=== PATIENT | female | born 2000 | race Caucasian/White ===

== ENCOUNTER → 2024-01-08 11:07 | Outpatient (REF) | payer BC, OTHER, MEDICAID, SELFPAY ==
[2024-01-08 15:46] LABS: % Basophils 0.4 % (0-2); % Eosinophils 0.9 % (0-6); % Immature Granulocytes 0.3 % (0-0.5); % Lymphocytes 22.5 % (20.5-51.1); % Monocytes 6.2 % (1.7-9.3); % Neutrophils 69.7 % (42.2-75.2); Absolute Eosinophils 0.1 10^3/uL (0-0.7); Absolute Lymphocytes 1.7 10^3/uL (1.2-3.4); Absolute Monocytes 0.5 10^3/uL (0.1-0.6); Absolute Neutrophils 5.2 10^3/uL (1.4-6.5); Hematocrit 39.4 % (37.0-47.0); Hemoglobin 12.9 g/dL (12.0-16.0); Mean Corp Hgb Conc. 32.7 g/dL (33.0-37.0); Mean Corpuscular Hgb 29.9 pg (27.0-31.0); Mean Corpuscular Volume 91.2 fL (81.0-99.0); Mean Platelet Volume 10.4 fL (7.4-10.4); Nucleated Red Blood Cells % 0 %; Platelet Count 282 10^3/uL (130-400); Red Blood Cell Count 4.32 10^6/uL (4.20-5.40); White Blood Cell Count 7.5 10^3/uL (4.8-10.8)
[2024-01-08 15:52] LABS: ALT (SGPT) < 10 U/L (0-35); AST (SGOT) 18 U/L (14-36); Albumin 4.2 g/dl (3.5-5.0); Alkaline Phosphatase 44 U/L (38-126); Blood Urea Nitrogen 14 mg/dl (7-17); Calcium 9.3 mg/dl (8.4-10.2); Carbon Dioxide 28 mmol/L (22-30); Chloride 103 mmol/L (98-107); Glucose 84 mg/dl (70-99); Iron 112 ug/dl (37-170); Potassium 4.3 mmol/L (3.5-5.1); Sodium 134 mmol/L (135-145); Total Bilirubin 0.6 mg/dl (0.2-1.3); Total Protein 6.9 g/dl (6.3-8.2); eGFR > 60.00
[2024-01-08 16:03] LABS: Percent Saturation 31 % (20-50); Total Iron Binding Capacity 353 ug/dl (265-497)
[2024-01-08 16:09] LABS: Vitamin D, 25-OH*** 39.3 ng/mL (30-80)
[2024-01-08 16:23] LABS: TSH Reflex To Free T4 1.25 uIU/ml (0.47-4.68)
[2024-01-08 16:27] LABS: Ferritin 18.5 ng/ml (6.24-137)
[2024-01-08 17:06] LABS: Folate 19.3 ng/ml (2.76-20); Vitamin B12 536 pg/ml (239-931)
[2024-01-10 15:25] LABS: Transferrin 270 mg/dL (200-360)
== END ==
LOC: HWLAB 11:07
PROVIDERS: ATTENDING PHYSICIAN Psychiatry & Neurology Psychiatry; FAMILY PHYSICIAN Internal Medicine
DX: F25.0 Schizoaffective disorder, bipolar type (principal); F42.9 Obsessive-compulsive disorder, unspecified; F50.00 Anorexia nervosa, unspecified
CPT/HCPCS: 36415; 80053; 82306; 82607; 82728; 82746; 83540; 83550; 84443; 84466; 85025

== ENCOUNTER 2024-01-08 13:37 | Emergency (ER) | payer BC, OTHER, MEDICAID, SELFPAY ==
[2024-01-08 13:38] VITALS: BP 110/62
[2024-01-08 14:04] VITALS: BMI 28.9
--- NOTE | 2024-01-08 14:40 | ED.GENMED ---
History of Present Illness
<Joe Hernandes PA-C - Last Filed: 01/09/24 19:55>
General
Chief Complaint: Medication Reaction
Source: patient
Exam Limitations: none
Time Seen by Provider: 01/08/24 14:08
Travel History
Have you had any contact with someone who has COVID-19?: No
Do you have any symptoms of coronavirus? Fever > 100 degrees, chills, cough, shortness of breath, sore throat, loss of taste or smell, muscle aches, or headache?: No
History of Present Illness
History of Present Illness:
23-year-old female presents complaining of blurry vision for 3 days with involuntary muscle contractions that have been increasing over several days as well. She recently switched psychiatrists and was started on new medication including
benztropine and Caplyta. She denies chest pain or shortness of breath. No fever. No urinary symptoms. No other complaints at this time
Phy Exam
<Joe Hernandes PA-C - Last Filed: 01/09/24 19:55>
Physical Exam
Physical Exam:
General: Well-appearing female no acute respiratory distress
HEENT: Normocephalic atraumatic mucosa dry neck is supple pupils equal round reactive to light but measure about 5 mm bilaterally and constrict to about 3 mm. Extract motion intact no nystagmus
Heart: Regular rate and rhythm
Lungs: Clear no wheeze or rales
Neurologic exam: Alert and oriented x 3. Occasional contractions of the muscle that are brief. This is mainly upper body but some to the lower body. Finger-nose intact [id number] intact. Alert and oriented x 3 extremities: No cyanosis
Course
<Joe Hernandes PA-C - Last Filed: 01/09/24 19:55>
Orders/Labs/Results
Orders:
Orders
01/08/24 14:21
CT Head W/o Iv Contrast Urgent
Comment:
Reason For Exam: blurry vision, twitches
01/08/24 14:43
Test Result ONCE
01/08/24 14:53
Complete Blood Count/With Diff Urgent
Comprehensive Metabolic Panel Urgent
HCG, Serum Qualitative Screen Urgent
Abnormal Lab Results
01/08/24
14:53
RBC 4.11 L 10^6/uL
(4.20-5.40)
Hct 36.3 L %
(37.0-47.0)
Sodium 134 L mmol/L
(135-145)
01/08/24 14:53
01/08/24 14:53
Vital Signs
Initial and Last Documented VS:
Initial Vital Signs
Temp Pulse Resp BP Pulse Ox
98.1 F 80 18 110/62 98
01/08/24 13:38 01/08/24 13:38 01/08/24 13:38 01/08/24 13:38 01/08/24 13:38
Last Documented Vital Signs
Temp Pulse Resp BP Pulse Ox
98.1 F 60 18 111/58 100
01/08/24 13:38 01/08/24 17:55 01/08/24 17:55 01/08/24 17:55 01/08/24 17:55
<Esequiel Marmolejo MD - Last Filed: 01/08/24 17:44>
Orders/Labs/Results
Orders:
Orders
01/08/24 14:21
CT Head W/o Iv Contrast Urgent
Comment:
Reason For Exam: blurry vision, twitches
01/08/24 14:43
Test Result ONCE
01/08/24 14:53
Complete Blood Count/With Diff Urgent
Comprehensive Metabolic Panel Urgent
HCG, Serum Qualitative Screen Urgent
Abnormal Lab Results
01/08/24
14:53
RBC 4.11 L 10^6/uL
(4.20-5.40)
Hct 36.3 L %
(37.0-47.0)
Sodium 134 L mmol/L
(135-145)
01/08/24 14:53
01/08/24 14:53
Vital Signs
Initial and Last Documented VS:
Initial Vital Signs
Temp Pulse Resp BP Pulse Ox
98.1 F 80 18 110/62 98
01/08/24 13:38 01/08/24 13:38 01/08/24 13:38 01/08/24 13:38 01/08/24 13:38
Last Documented Vital Signs
Temp Pulse Resp BP Pulse Ox
98.1 F 60 18 111/58 100
01/08/24 13:38 01/08/24 17:55 01/08/24 17:55 01/08/24 17:55 01/08/24 17:55
<Joe Hernandes PA-C - Last Filed: 01/09/24 19:55>
MDM/Problems Addressed
Differential Diagnosis Includes:
Blurry vision with involuntary muscle contractions after recent initiation of benztropine and Caplyta. Question possible medication adverse. Sent in by psychiatry for imaging and blood work. CT head pending. Will touch base with psychiatry for
recommendation
<Joe Hernandes PA-C - Last Filed: 01/09/24 19:55>
*Critical Care Note
Total Time (30-74mins, 75-104mins- exclusive of procedures): Not Applicable
<Joe Hernandes PA-C - Last Filed: 01/09/24 19:55>
Update Note
Update Note:
Patient reevaluated. Stable. Discussed with psychiatry who is concerned for upper motor neuron issue given the hyper reflexes. There is no unilateral deficit on my exam bilateral patellar reflexes are 3+ bilateral brachioradialis are 2+. No
clonus is noted discussed with neurology who is in to see the patient
Symptoms likely related to medication. Stable for discharge
ED Attending Note
<Joe Hernandes PA-C - Last Filed: 01/09/24 19:55>
-
Portions of this chart may have been created with voice recognition software.� Occasional wrong word or��sound alike� substitutions may have occurred due to the inherent limitations of voice recognition software.
<Esequiel Marmolejo MD - Last Filed: 01/08/24 17:44>
ED Attending Note
Patient seen and examined by attending physician: Yes
I performed the substantive portion of visit, reviewed & personally made and approve the management plan that is documented in note by myself or CHARLES.: Yes
ED Attending Note:
Patient describing ongoing movement issues. Medication adjustments with new antipsychotic and benztropine. Also describing blurry vision the last 2 to 3 days. No unusual headache or other neurologic symptoms.
On exam patient is fully awake alert and oriented no distress. Normal finger-nose. Speech normal. Very dilated pupils bilaterally with minimal reaction. This sharp. Speech normal. Nonfocal. Mildly hyperreflexic patellar. Otherwise nonfocal.
Patient was sent by psychiatry. Clinically I suspect this is medication related. Labs are normal head CT negative. Psychiatry was concerned of a underlying neurologic issue and therefore we asked for neurology's opinion
Seen and cleared by neurology. Hold Cogentin follow-up. Psychiatry aware
Discharge Plan
Departure
Patient Disposition: Home (Routine Discharge)
Date of Disposition: 01/08/24
Time of Disposition: 17:42
Patient with high blood pressure during this ER visit?: No
Discharge Problem:
Blurry vision, Suspect secondary to Cogentin, Movement disorder/tardive dyskinesia
Referrals:
Kathryn Borjas, DO [Family Provider] - Follow up in 2-3 days
Activity Restrictions/Additional Instructions:
Stop the Cogentin
Follow-up closely with your psychiatrist and primary care physician
If the blurry vision does not improve and resolve over the next 2 to 4 days or if symptoms progress or if you develop any new or unusual symptoms please return to the ER immediately. This would include unusual headache focal weakness speech etc.
Interventions
Interventions:
*Risk Screen - Suicide Last Done: 01/08/24 14:04
*General Assessment Last Done: 01/08/24 14:04
*Neglect/Abuse Screening Last Done: 01/08/24 14:04
ED- Fall Risk Assessment Last Done: 01/08/24 14:09
*ED COVID-19 Vaccine History Last Done: 01/08/24 14:04
*Nursing Disposition Last Done: 01/08/24 17:55
ED-Skin Assessment Last Done: 01/08/24 14:04
ED- Pulmonary Assessment Last Done: 01/08/24 14:04
ED-EENT Assessment Last Done: 01/08/24 14:04
Discharge Date and Time
Discharge Date/Time: 01/08/24 17:55
Print Language: NAMIBIAN
[2024-01-08 15:01] LABS: % Basophils 0.4 % (0-2); % Eosinophils 0.4 % (0-6); % Immature Granulocytes 0.3 % (0-0.5); % Lymphocytes 25.9 % (20.5-51.1); % Monocytes 6.5 % (1.7-9.3); % Neutrophils 66.5 % (42.2-75.2); Absolute Lymphocytes 1.8 10^3/uL (1.2-3.4); Absolute Monocytes 0.5 10^3/uL (0.1-0.6); Absolute Neutrophils 4.7 10^3/uL (1.4-6.5); Hematocrit 36.3 % (37.0-47.0); Hemoglobin 12.3 g/dL (12.0-16.0); Mean Corp Hgb Conc. 33.9 g/dL (33.0-37.0); Mean Corpuscular Hgb 29.9 pg (27.0-31.0); Mean Corpuscular Volume 88.3 fL (81.0-99.0); Nucleated Red Blood Cells % 0 %; Platelet Count 271 10^3/uL (130-400); Red Blood Cell Count 4.11 10^6/uL (4.20-5.40); Red Cell Dist. Width 12.1 % (11.5-14.5)
[2024-01-08 15:12] LABS: HCG, Serum Qualitative Screen Negative
[2024-01-08 15:15] LABS: ALT (SGPT) < 10 U/L (0-35); AST (SGOT) 17 U/L (14-36); Albumin 4.1 g/dl (3.5-5.0); Alkaline Phosphatase 44 U/L (38-126); Blood Urea Nitrogen 16 mg/dl (7-17); Calcium 9.3 mg/dl (8.4-10.2); Carbon Dioxide 26 mmol/L (22-30); Chloride 103 mmol/L (98-107); Estimated Creatinine Clearance > 125 ml/min; Glucose 80 mg/dl (70-99); Potassium 4.2 mmol/L (3.5-5.1); Sodium 134 mmol/L (135-145); Total Bilirubin 0.6 mg/dl (0.2-1.3); Total Protein 6.6 g/dl (6.3-8.2); eGFR > 60.00
--- NOTE | 2024-01-08 15:55 | CON.NEURO4 ---
Consultation - Neurology 4
-
CONSULTING PHYSICIAN: Delisa French
REFERRING PHYSICIAN: ER
DICTATED BY: Delisa French
DATE/TIME OF REQUEST: 01/08/24
DATE/TIME OF CONSULTATION: 01/08/24
Reason for Consultation: Blurred vision, tremors
History of Present Illness:
Patient is a 23-year-old woman with past medical history of affective disorder presents to the hospital because of blurred vision for the past 3 days and has had worsening brief abnormal movements for approximately the past 7 to 8 days. Has been
experiencing some abnormal movements and tremor for at least a couple of months.
Patient had previously been on a regimen for psychiatric medications of Luvox and Abilify the Abilify had not made her sick, so she was switched to combination of Latuda and Luvox. Then got started on propranolol and naltrexone she had switched
doctors so eventually got started on Prozac and Zyprexa and stop the Latuda and Luvox. She was tried on Rexulti which resulted in tremors. Geodon seem to be well-tolerated but she had a switch in psychiatrist.
Current medication regimen includes naltrexone, Prozac, propranolol which is planned and being stopped and Coplyta. Coplyta started about 12/31. Benztroptine started about 12/28. About 2 days after starting Benztroptine started to have more
abnormal movements. She had never had blurred vision before starting the Benztropine.
Patient and her mother had not seen any mental status changes. No vision problems before this.
Past Medical History: Affective disorder possibly bipolar and schizoaffective
Surgical History: None
Family History: Non-contributory
Social History: Lives at home with family, no tobacco alcohol or drug use
Review of Symptoms:
Patient denies any fever, headache, chest pain, shortness of breath, GI or symptoms.
Physical Exam:
Well-appearing young woman in no overt distress no signs of head or neck trauma oropharynx is clear eyes are clear with no ptosis no neck masses full range of motion of the neck heart rate regular breathing unlabored abdomen soft nontender no lower
extremity edema
Neurologic Examination:
The patient is awake, alert and oriented x 3. She is able to follow commands and answer questions appropriately. There is no aphasia or dysarthria. On cranial nerve assessment, pupils are 3 dilated 5 mm equal with reaction to light. Near vision is
poor. Can detect a red credit card and track it. Visual epstein are full. Extraocular movements are intact. Facial sensations are intact and bilaterally symmetrical, there is no facial asymmetry. Hearing is intact bilaterally to normal
conversation volume. Tongue palate and uvula are midline. Sternocleidomastoid strengths are full bilaterally. Motor strengths are 5/5 bilateral upper and lower extremities on medical research [place] scale. Occasional brief jerk movements of lower
extremities. Deep tendon reflexes are 3+ bilateral upper and lower extremities and Babinski is absent bilaterally. No clonus. Petty' negative. Sensations of pain, touch, temperature and vibration are intact and bilaterally symmetrical. There was
no extinction noted on double simultaneous stimulation. Coordination is intact by finger to nose bilaterally.
Neuro Imaging: CT head unremarkable
Impressions
1. Very likely the anticholinergic side effects of recent benztropine is producing mydriasis and blurred vision from this.
2. I suspect that her brief involuntary movements are either myoclonus secondary to medications (SSRI can do this) or tardive dyskinesia/Extrapyramidal effects from exposure to a number of prior antipsychotics. Difficult to tell which medication
this would be due to. It seems that the movements worsened before starting Coplyta so less likely attributable to that medication. Previous exposure to a number of antipsychotics and young age place her at risk for tardive dyskinesia.
3. No evidence of Parkinsonism or rigidity
4. Not showing signs of serotonin syndrome
Recommendations:
1. Remain off benztropine
2. Would wait around 7 to 10 days and if still having abnormal movements would consider starting amantadine for extrapyramidal side effects
3. Continue the Coplyta
4. No issues with plans to stop Propranolol
5. Continue Fluoxetine and Naltrexone
6. Continue to follow with psychiatrist
Discussed patient care with: ED, patient and her family
[2024-01-08 16:12] VITALS: BP 102/62
--- NOTE | 2024-01-08 17:54 | EDRN ---
Reviewed discharge instructions with patient. Verbalized understanding. Ambulated with steady gait to the lobby.
[2024-01-08 17:55] VITALS: BP 111/58
== END 2024-01-08 17:55 | disposition home or self-care (01) ==
LOC: EMR 13:37
PROVIDERS: Physician Assistant; EMERGENCY PHYSICIAN Emergency Medicine; FAMILY PHYSICIAN Internal Medicine; OTHER PHYSICIAN Student in an Organized Health Care Education/Training Program
DX: H53.8 Other visual disturbances (principal); G24.01 Drug induced subacute dyskinesia; M62.40 Contracture of muscle, unspecified site; G25.9 Extrapyramidal and movement disorder, unspecified; F39 Unspecified mood [affective] disorder; Z88.1 Allergy status to other antibiotic agents; Z88.0 Allergy status to penicillin; Z91.048 Other nonmedicinal substance allergy status
CPT/HCPCS: 99284; 36415; 70450; 80053; 82306; 82607; 82728; 82746; 83540; 83550; 84443; 84466; 84703; 85025

== ENCOUNTER 2024-02-15 19:35 | Emergency (ER) | payer BC, OTHER, SELFPAY ==
[2024-02-15 19:35] VITALS: BMI 27.9
[2024-02-15 19:57] VITALS: BP 104/68
[2024-02-16 01:28] VITALS: BP 114/58
--- NOTE | 2024-02-16 06:24 | ED.GENMED ---
History of Present Illness
General
Chief Complaint: Eye Problems
Source: patient and family (Mother)
Exam Limitations: none
Time Seen by Provider: 02/16/24 04:58
Nursing documentation reviewed up to this point in time: agreed with
Travel History
Have you had any contact with someone who has COVID-19?: No
Do you have any symptoms of coronavirus? Fever > 100 degrees, chills, cough, shortness of breath, sore throat, loss of taste or smell, muscle aches, or headache?: No
History of Present Illness
History of Present Illness:
23-year-old female with a past medical history of schizoaffective disorder who presents to the emergency room with her mother for evaluation of visual issues. Patient reports that she has had blurry vision for the past 1 to 2 months�was actually
initially seen in this emergency room in late December for the symptoms and was seen by neurology and her symptoms were thought to be related to medication. Her medications were adjusted but symptoms never resolved. She describes sensation 'like a
blob of Vaseline over my eyes. She says that she feels like everything is blurry. She denies any vision loss. She denies any eye pain. She has apparently had occasional headaches no headache presently. Denies any other complaints. She does
note that initially after onset of symptoms she was having some involuntary spastic movements of the arms which seem to actually resolved. Apparently the symptoms were discussed with patient's primary psychiatrist (Dr. Oliveros) who consulted with
neurology and ultimately recommended patient come to the emergency room for MRI.
Review of Systems
Review of Systems
All Other Systems: ROS reviewed and negative except as documented in HPI and ROS
Constitutional: Denies fever
EENT: Reports other (Blurry vision); Denies sore throat or runny nose
Respiratory: Denies cough or trouble breathing
Cardiac: Denies chest pain
ABD/GI: Denies abdominal pain, nausea or vomiting
: Denies flank pain
Musculoskeletal: Denies neck pain or back pain
Neurological: Reports headache; Denies dizzy, weakness or numbness
Phy Exam
Physical Exam
Physical Exam:
General: Awake, alert, oriented x3; no acute distress
Head: Normocephalic, atraumatic
Eyes: Conjunctiva normal, EOMI, pupils 5 mm and reactive to light bilaterally
Throat: Airway intact, handling secretions
Neck: Trachea midline, supple without meningismus
Lungs: Clear to auscultation bilaterally, no wheezing, rales, rhonchi
Heart: Regular rate and rhythm, no murmurs, gallops, or rubs
Abd: Soft, non distended, nontender
Neuro: Cranial nerves grossly intact, speech fluid, no motor or sensory deficits
Skin: no rash
Extremities: No edema in extremities, equal pulses in all extremities
Scores
Heart Failure Risk
Heart Failure Risk Score: Not Applicable
Heart Score for Chest Pain Patients
STEMI patient?: Not applicable
Withdrawal Assessment of Alcohol
Withdrawal Assessment Completed?: Not applicable
Course
Orders/Labs/Results
Orders:
Orders
02/16/24 05:34
Visual Acuity- Treatment ONCE
02/16/24 06:12
MR Brain W/o & With Contrast Urgent
Comment:
Reason For Exam: blurry vision
Recent pill cam endoscopy?: No
MR Orbit/face/neck W/o & With Urgent
Comment:
Reason For Exam: blurry vision
Recent pill cam endoscopy?: No
02/16/24 06:13
NEUROLOGY CONSULT Urgent
Consulting Provider: Pj French
Was physician already notified: Yes
Test Result ONCE
02/16/24 06:35
Complete Blood Count/With Diff Urgent
Comprehensive Metabolic Panel Urgent
HCG, Serum Qualitative Screen Urgent
02/16/24 07:39
Lorazepam [Ativan] 1 mg PO NOW STA
Abnormal Lab Results
02/16/24
06:35
RBC 3.95 L 10^6/uL
(4.20-5.40)
Hgb 11.7 L g/dL
(12.0-16.0)
Hct 34.4 L %
(37.0-47.0)
Total Protein 6.1 L g/dl
(6.3-8.2)
02/16/24 06:35
02/16/24 06:35
Vital Signs
Initial and Last Documented VS:
Initial Vital Signs
Temp Pulse Resp BP Pulse Ox
36.8 C 83 16 104/68 99
02/15/24 19:57 02/15/24 19:57 02/15/24 19:57 02/15/24 19:57 02/15/24 19:57
Last Documented Vital Signs
Temp Pulse Resp BP Pulse Ox
36.3 C 60 17 114/58 100
02/16/24 01:28 02/16/24 01:28 02/16/24 01:28 02/16/24 01:28 02/16/24 01:28
MDM/Problems Addressed
Differential Diagnosis Includes:
MS, medication side effect, primary ophthalmologic issue
MDM/Problems Addressed:
23-year-old female presents for evaluation of blurry vision has been ongoing for the past 2 months. Also having occasional headaches. Initially thought to be related to medication (Cogentin) but this medication has been discontinued and symptoms
have persisted. Primary psychiatrist ultimately recommended patient come in for MRI. Vital signs normal. Exam as above. Discussed case with neurology who confirmed plan as above�recommend for MRI brain with and without, MRI orbit with and
without. Will place IV send basic labs and test as well.
Discussed with radiologist will obtain MRI here in the emergency room and discussed with neurology they will evaluate and review MR. At this point I do not see any indication for admission�primary concern was multiple sclerosis which even in the
event that MRI is positive should not require admission. Will observe here pending imaging and neurology consultation.
*Pulse Oximetry
Patient hypoxic: no
*Critical Care Note
Total Time (30-74mins, 75-104mins- exclusive of procedures): Not Applicable
Data Reviewed
Review of Other/Old Records Reveals: Labs, Records, Radiology Studies and Progress Notes
Source: patient and family (Mother)
Patient Management
Discussion with other providers: Thread Laster (Discussed with psychiatrist, discussed with neurology) and Radiologist (Discussed with radiologist)
ED Attending Note
-
Portions of this chart may have been created with voice recognition software.� Occasional wrong word or��sound alike� substitutions may have occurred due to the inherent limitations of voice recognition software.
Discharge Plan
Departure
Discharge Problem:
Visual disturbance
Prescriptions:
No Action
ibuprofen [Advil] 200 mg Tablet
200 mg PO Q6HPRN PRN (Reason: mild pain)
fluoxetine 20 mg Capsule
60 mg PO DAILY
Caplyta 10.5 mg Capsule
10.5 mg PO HS
Referrals:
Kathryn Borjas DO [Family Provider] -
Activity Restrictions/Additional Instructions:
Thank you for visiting the Emergency Department at [facility].
1. Please schedule a follow up appointment as directed. Call first thing tomorrow morning to make an appointment.
2. If indicated, please take your medications as instructed and indicated on discharge paperwork.
3. If any of your symptoms do not improve, or persist, or become more severe within 6-12 hours, please return to the emergency department for further care.
4. Please return to the emergency department if you develop a headache, neck pain/stiffness, fever greater than 100.4F, chest pain, shortness of breath, persistent nausea, vomiting, slurred speech, difficulty walking, numbness/tingling, weakness,
signs of infection or any other symptoms that are worrisome to you.
Please call [phone] if you have any questions.
Interventions
Interventions:
*Risk Screen - Suicide Last Done: 02/15/24 19:57
*General Assessment Last Done: 02/15/24 19:57
*ED COVID-19 Vaccine History Last Done: 02/15/24 19:57
Discharge Date and Time
Print Language: SYRIAC
[2024-02-16 06:42] LABS: % Basophils 0.5 % (0-2); % Eosinophils 0.9 % (0-6); % Immature Granulocytes 0.2 % (0-0.5); % Lymphocytes 34.7 % (20.5-51.1); % Monocytes 8.1 % (1.7-9.3); % Neutrophils 55.6 % (42.2-75.2); Absolute Eosinophils 0.1 10^3/uL (0-0.7); Absolute Lymphocytes 2.3 10^3/uL (1.2-3.4); Absolute Monocytes 0.5 10^3/uL (0.1-0.6); Absolute Neutrophils 3.7 10^3/uL (1.4-6.5); Hematocrit 34.4 % (37.0-47.0); Hemoglobin 11.7 g/dL (12.0-16.0); Mean Corpuscular Hgb 29.6 pg (27.0-31.0); Mean Corpuscular Volume 87.1 fL (81.0-99.0); Mean Platelet Volume 9.8 fL (7.4-10.4); Nucleated Red Blood Cells % 0 %; Platelet Count 231 10^3/uL (130-400); Red Blood Cell Count 3.95 10^6/uL (4.20-5.40); Red Cell Dist. Width 11.9 % (11.5-14.5); White Blood Cell Count 6.6 10^3/uL (4.8-10.8)
[2024-02-16 06:52] LABS: HCG, Serum Qualitative Screen Negative
[2024-02-16 07:04] LABS: ALT (SGPT) < 10 U/L (0-35); AST (SGOT) 15 U/L (14-36); Albumin 3.8 g/dl (3.5-5.0); Alkaline Phosphatase 38 U/L (38-126); Blood Urea Nitrogen 12 mg/dl (7-17); Calcium 8.9 mg/dl (8.4-10.2); Carbon Dioxide 27 mmol/L (22-30); Chloride 106 mmol/L (98-107); Glucose 89 mg/dl (70-99); Potassium 3.5 mmol/L (3.5-5.1); Sodium 138 mmol/L (135-145); Total Bilirubin 0.6 mg/dl (0.2-1.3); Total Protein 6.1 g/dl (6.3-8.2); eGFR > 60.00
--- NOTE | 2024-02-16 08:51 | CON.NEURO4 ---
Addendum entered and electronically signed by Marvel Christensen MD 02/16/24 11:09:
Studies reviewed.
I have personally examined the patient. I reviewed and agree with the [facility] OPERATIONS INTELLIGENCE OFFICER's Note.
My addenda:
Awake, alert, interactive. No acute distress.
Speech intact.
Follows 2-step requests w/o difficulty. No tremor.
Extra-ocular movements grossly intact.
Facial movements full and symmetric. Hearing intact to normal conversational volume.
Normal UE movements bilaterally.
Neck: full ROM.
Chest: no dyspnea
Heart: no JVD
Ext: (-) Clubbing, (-) Cyanosis, (-) Edema
IMPRESSIONS/RECOMMENDATIONS:
Abrupt onset of worsening vision with self-reported central obscurations and daily persistent headaches
Differential diagnosis includes intracranial abnormality such as optic neuritis. More likely that the patient is experiencing migraine with and without aura
Patient previously utilized propranolol for treatment. Would advance propranolol dosing from 10 mg daily to dosing of 10 mg twice a day's of reducing likelihood of headache and therefore visual changes
Provide rizatriptan 10 mg melt tab now and as needed to remediate the patient's head discomfort
We will follow MRI of brain results
Would again attempt to alter patient's antidepressant medications in hopes of reducing symptomatology which may be related to same
Check blood work potential metabolic abnormalities producing symptomatology
Patient will require iron supplementation as outpatient due to low ferritin levels
D/W patient / family
All questions answered.
Will continue to follow as outpatient.
Original Note:
Consultation - Neurology 4
-
CONSULTING PHYSICIAN: Marvel Christensen MD
REFERRING PHYSICIAN: BHARTI/Dr. Gaston
DICTATED BY: ARNOL King
DATE/TIME OF REQUEST: 02/16/24
DATE/TIME OF CONSULTATION: 02/16/24
Reason for Consultation: Vision change
History of Present Illness:
This is a 23-year-old right-handed female who has presented to the hospital by referral of her psychiatrist Dr. Oliveros for report of ongoing visual disturbance. Patient was previously evaluated by out inpatient neurology service in December 2023 for
report of visual disturbance and abnormal movements.
From previous evaluation by Dr. French on 01/08/24:
'Patient is a 23-year-old woman with past medical history of affective disorder presents to the hospital because of blurred vision for the past 3 days and has had worsening brief abnormal movements for approximately the past 7 to 8 days. Has been
experiencing some abnormal movements and tremor for at least a couple of months.
Patient had previously been on a regimen for psychiatric medications of Luvox and Abilify the Abilify had not made her sick, so she was switched to combination of Latuda and Luvox. Then got started on propranolol and naltrexone she had switched
doctors so eventually got started on Prozac and Zyprexa and stop the Latuda and Luvox. She was tried on Rexulti which resulted in tremors. Geodon seem to be well-tolerated but she had a switch in psychiatrist.
Current medication regimen includes naltrexone, Prozac, propranolol which is planned and being stopped and Caplyta. Caplyta started about 12/31. Benztropine started about 12/28. About 2 days after starting Benztropine started to have more abnormal
movements. She had never had blurred vision before starting the Benztropine.
Patient and her mother had not seen any mental status changes. No vision problems before this.'
Patient weaned off of the new medication benztropine since that visit and her abnormal movements improved significantly. She continued on her new medication Caplyta. Patient reports that for the past two months since starting Caplyta she has had a
daily headache. Her headache is bitemporal and in the center of her forehead and also includes a throbbing sensation behind her eyes, left>right. Her headache comes and goes throughout the day and is typically an 8-9/10 but currently is a 7/10. She
reports photophobia but denies phonophobia, nausea, and vomiting. Prior to two months ago she rarely experienced a headache. She was on propranolol several months ago, she is unsure what this was for but was told it wasn't doing anything so it was
stopped, she tolerated the medication without any side effects.
She also endorses ongoing visual disturbance. She describes this as it seeming like there is a blob of Vaseline in the center of her bilateral vision obstructing her view. This is constant and never improves of worsens. She has not been evaluated
by an clinical educator. She was last evaluated by her survival equipment repairer in April 2023 and had an unremarkable exam at that time. She has glasses for mild vision impairment/astigmatism. Additionally, she notes 2 months of feeling like her legs fluctuate
between being stiff and 'giving out' on her. About 3x per week her legs give out and she falls to the ground on her knees. She reports an overall sensation of weakness prior to falling. She hasn't hit her head/neck with any of the falls. She denies
any speech/swallow difficulty, numbness, focal weakness, chest pain, palpitations, and shortness of breath.
Past Medical History: Schizoaffective disorder.
Surgical History: Denies.
Family History: Mother- migraines. Paternal uncle- brain tumor.
Social History: Denies alcohol, tobacco, and illicit drug use.
Allergies: Clindamycin, penicillins, environmental.
Home Medications: See below.
Review of Symptoms:
Patient denies any fever, chest pain, shortness of breath, GI or symptoms.
�Per the HPI.�All systems are reviewed negative except above.
Physical Exam:
The patient is afebrile, abdomen is nondistended, breathing is unlabored, skin is warm and dry, no edema.
Neurologic Examination:
The patient is awake, alert and oriented x 3. She is able to follow commands and answer questions appropriately. There is no aphasia or dysarthria. On cranial nerve assessment, pupils are 5 mm bilateral, round and reactive to light and
accommodation. Tunnel vision bilaterally. Extraocular movements are intact. Facial sensations are intact and bilaterally symmetrical, there is no facial asymmetry. Hearing is intact bilaterally to normal conversation volume. Tongue palate and uvula
are midline. Sternocleidomastoid strengths are full bilaterally. Motor strengths are 5/5 bilateral upper and lower extremities on medical research Nichols scale. There is no drift or involuntary movement noted. Deep tendon reflexes are 2+ bilateral
upper and lower extremities and Babinski is absent bilaterally. Sensations of touch, temperature and vibration are intact and bilaterally symmetrical. There was no extinction noted on double simultaneous stimulation. Coordination is intact by finger
to nose bilaterally.
Lab Results: See below.
Neuro Imaging:
1. CT Head 01/08/24: No acute intracranial abnormality noted.
2. MRI Brain 02/16/24: No acute intracranial abnormality.
3. MRI Orbits 02/16/24: Normal MRI appearance of the bilateral orbits
Differentials for the patient's presentation include:
1. Intractable migraine with aura in patient with no previous history of headache.
2. Subacute vision change and leg stiffness/weakness possibly medication-related in the setting of new med Caplyta.
3. MRI brain and orbits negative for structural brain abnormality that could produce patient's symptoms.
4. Need evaluation by ophthalmology to rule-out and eye issue.
Patient has the following risk factors for their symptoms: New medication Caplyta
Recommendations:
-Provide rizatriptan 10mg PO x1 now for migraine relief.
-Initiate propranolol 10mg BID for headache prevention. Can titrate this up if patient is tolerating starting dose, heart rate is currently in the 60's.
-Provide thiamine 100mg PO x3 days.
-Needs outpatient evaluation by ophthalmology as soon as possible, if this is normal would consider discontinuing Caplyta and trying an alternative medication.
Discussed patient care with: Dr. Christensen, the patient, patient's mother
Vital Signs and Labs
-
Vital Signs and Labs:
Vital Signs
Temp Pulse Resp BP Pulse Ox
97.4 F 60 17 114/58 100
02/16/24 01:28 02/16/24 01:28 02/16/24 01:28 02/16/24 01:28 02/16/24 01:28
Lab Results
02/16/24 06:35
02/16/24 06:35
Sodium 138 mmol/L (135-145) 02/16/24 06:35
Potassium 3.5 mmol/L (3.5-5.1) 02/16/24 06:35
BUN 12 mg/dl (7-17) 02/16/24 06:35
Glucose 89 mg/dl (70-99) 02/16/24 06:35
Calcium 8.9 mg/dl (8.4-10.2) 02/16/24 06:35
Medications
-
Active Medications
Generic Name Dose Route Start Last Admin
Trade Name Freq PRN Reason Stop Dose Admin
Propranolol HCl 10 mg 02/16/24 10:00
Propranolol 10 Mg Regular Release Tablet PO 03/15/24 09:59
BID ELIZABETH
Thiamine HCl 100 mg 02/16/24 10:00
Thiamine 100 Mg Tablet PO 02/18/24 08:01
DAILY ELIZABETH
Home Medications
�Medication �Instructions �Recorded
fluoxetine 20 mg capsule 60 mg PO DAILY Mental Health 02/16/24
ibuprofen 200 mg tablet (Advil) 200 mg PO Q6HPRN PRN mild pain 02/16/24
lumateperone 10.5 mg capsule 10.5 mg PO HS Mental Health 02/16/24
(Caplyta)
[2024-02-16] MEDS: ATIVAN 1 MG PO (09:11)
[2024-02-16] MEDS: INDERAL 10 MG PO (10:32)
[2024-02-16] MEDS: VITAMIN B1 100 MG PO (10:40)
[2024-02-16] MEDS: MAXALT MLT (ORALLY DISINTEGRATING) 10 MG PO (10:42)
[2024-02-16 10:51] VITALS: BP 109/64
[2024-02-16 11:08] LABS: Erythrocyte Sed Rate 9 mm/hour (0-20)
[2024-02-16 13:46] LABS: TSH Reflex To Free T4 2.02 uIU/ml (0.47-4.68)
[2024-02-16 13:50] LABS: Ferritin 12.7 ng/ml (6.24-137)
[2024-02-16 14:22] LABS: Folate 14.5 ng/ml (2.76-20); Vitamin B12 282 pg/ml (239-931)
== END 2024-02-16 10:53 | disposition home or self-care (01) ==
LOC: EMR 19:35
PROVIDERS: CONSULT PHYSICIAN Student in an Organized Health Care Education/Training Program; EMERGENCY PHYSICIAN Emergency Medicine; FAMILY PHYSICIAN Internal Medicine
DX: H53.8 Other visual disturbances (principal); F25.9 Schizoaffective disorder, unspecified
CPT/HCPCS: 99284; 70543; 70553; 80053; 82607; 82728; 82746; 84443; 84703; 85025; 85652; A9575

== ENCOUNTER 2024-06-07 17:42 | Emergency (ER) | payer BC, OTHER, SELFPAY ==
[2024-06-07 17:43] VITALS: BMI 27.3
[2024-06-07 17:49] VITALS: BP 126/71
[2024-06-07 18:14] VITALS: BP 126/71
--- NOTE | 2024-06-07 18:19 | ED.GENMED ---
History of Present Illness
General
Chief Complaint: Crisis Evaluation
Source: patient and family (Mother)
Exam Limitations: none
Time Seen by Provider: 06/07/24 18:00
History of Present Illness
History of Present Illness:
This is a 23 year old female that comes in with c/o feeling suicidal. States that this started in July and has been getting worse. Mom states that she is to see her Psychiatrist next Thursday. States that she was in an IOP program which she
finished in February. States that she called them for a reevaluation and they came out ans suggested that she come in. States that they said that she was really down. States that she has also been talking with the Therapist for a week. Patient denies
any plan. States that she always has lower abd pain and she did have diarrhea today. Denies any fever, chills, chest pain, SOB, nausea, vomiting, headache, dizziness, urinary burning.
Past History
Past History
ED Past Medical History: Psychiatric (Anxiety, Bipolar, OCD, Shizo-affective disorder, )
ED Past Surgical History: Tonsilectomy (and adenoids, ) and Other (Plantar fibroma removed)
Social History
Tobacco: Non-smoker
Alcohol: Occasional
Personal: Single
Living: with family
Review of Systems
Review of Systems
All Other Systems: ROS reviewed and negative except as documented in HPI and ROS
Constitutional: Reports no symptoms; Denies fever or chills
EENT: Reports no symptoms
Respiratory: Reports no symptoms; Denies cough or trouble breathing
Cardiac: Reports no symptoms; Denies chest pain
ABD/GI: Reports abdominal pain (Always) and diarrhea; Denies nausea or vomiting
: Reports no symptoms; Denies dysuria, frequency or urgency
Musculoskeletal: Reports no symptoms
Skin: Reports no symptoms
Neurological: Reports no symptoms; Denies dizzy or headache
Psychiatric: Reports depression and suicidal
Phy Exam
General Physical Exam
General Presentation: well appearing and no apparent distress
General age: appears stated age
General Skin: warm and dry
General Habitus: normal
General Mental: alert
General Hydration: appears well hydrated
ENT Exam
ENT Exam: TM's normal, pharynx normal and neck supple
Eye Exam
Eye Exam: EOMI
Cardiovascular Exam
Cardiovascular Exam: regular rate/rhythm, no edema, no murmur and normal peripheral pulses
Pulmonary Exam
Pulmonary Exam: lungs clear, no respiratory distress, no rales, chest non tender, no crackles, no rhonchi, no wheezing and no cough
Gastrointestinal Exam
Gastrointestinal Exam: normal bowel sounds, soft, no organomegaly, no pulsatile mass, non distended and tender (Lower abd tenderness only with palpation)
Musculoskeletal Exam
Musculoskeletal Exam: full ROM and no edema
Skin Exam
Skin Exam: normal color, warm/dry, no rash and no petechia
Psychiatric Exam
Psychiatric Exam: depressed and suicidal (Makes good eye contact, smiling and answering questions)
Course
Orders/Labs/Results
Orders:
Orders
06/07/24 17:47
1:1 Observation - Suicide/ Violent Behavior As Directed
Crisis Consult Urgent
Reason for Consult: suicidal ideations
06/07/24 18:18
Test Result ONCE
06/07/24 18:28
Complete Blood Count/With Diff Urgent
Comprehensive Metabolic Panel Urgent
HCG, Serum Qualitative Screen Urgent
06/07/24 21:02
Urinalysis Reflex To Culture Urgent
Date Specimen was Collected: 06/07/24
Time Specimen was Collected: 18:32
Urine Drug Abuse Screen Urgent
Date Specimen was Collected: 06/07/24
Time Specimen was Collected: 18:32
Abnormal Lab Results
06/07/24 06/07/24
18:28 21:02
RBC 4.11 L 10^6/uL
(4.20-5.40)
Hct 35.2 L %
(37.0-47.0)
BUN 21 H mg/dl
(7-17)
Urine Ketones 1+ A
(Negative)
06/07/24 18:28
06/07/24 18:28
Slight Dehydration. HCG negative, Urine negative for infection Negative urine for drugs
Vital Signs
Initial and Last Documented VS:
Initial Vital Signs
Temp Pulse Resp BP Pulse Ox
98.4 F 79 18 126/71 97
06/07/24 17:49 06/07/24 17:49 06/07/24 17:49 06/07/24 17:49 06/07/24 17:49
Last Documented Vital Signs
Temp Pulse Resp BP Pulse Ox
98.4 F 79 18 126/71 97
06/07/24 17:49 06/07/24 17:49 06/07/24 17:49 06/07/24 18:14 06/07/24 17:49
MDM/Problems Addressed
Differential Diagnosis Includes:
Depression, suicidal
MDM/Problems Addressed:
This is a 23 year old female that comes in with c/o feeling suicidal. States thta she does not have a plan. States that she is to see her Psychiatrist next week. Patient was sent in by [facility] after reevaluation.
Will check labs. Urine drug and have Crisis see.
Patient was seen by Crisis and patient is in agreement in going inpatient for therapy. Crisis states that the patient has written suicidal letters.
Chronic conditions affecting care: Psychiatric illness
Acute Exacerbation and/or Progression of Chronic Illness: Psychiatric illness
*Pulse Oximetry
Patient hypoxic: no
*EKG
Interpreted by ED Provider?: NA
Rate: EKG- N/A
*School Bus Driver/Teacher Assistant Interpretation
Rate: School Bus Driver/Teacher Assistant- N/A
*Critical Care Note
Total Time (30-74mins, 75-104mins- exclusive of procedures): Not Applicable
ED Attending Note
-
Portions of this chart may have been created with voice recognition software.� Occasional wrong word or��sound alike� substitutions may have occurred due to the inherent limitations of voice recognition software.
Discharge Plan
Departure
Patient Disposition: [facility]
Date of Disposition: 06/07/24
Time of Disposition: 21:01
Patient with high blood pressure during this ER visit?: No
Condition: Good
Covid-19: Not Applicable
Discharge Problem:
Feeling suicidal, Depression
Instructions: Depression, Adult (DC), Suicide prevention
Prescriptions:
No Action
ibuprofen [Advil] 200 mg Tablet
200 mg PO Q6HPRN PRN (Reason: mild pain)
fluoxetine 20 mg Capsule
60 mg PO DAILY
Caplyta 10.5 mg Capsule
10.5 mg PO HS
Referrals:
Kathryn Borjas DO [Family Provider] -
Activity Restrictions/Additional Instructions:
Please follow up as directed by Crisis.
Interventions
Interventions:
*Risk Screen - Suicide Last Done: 06/07/24 17:44
*General Assessment Last Done: 06/07/24 17:49
*Neglect/Abuse Screening Last Done: 06/07/24 17:49
ED- Fall Risk Assessment Last Done: 06/07/24 18:16
*ED COVID-19 Vaccine History Last Done: 06/07/24 17:49
*Nursing Disposition Last Done: 06/07/24 21:13
ED-Psychological Assessment Last Done: 06/07/24 18:09
Discharge Date and Time
Discharge Date/Time: 06/07/24 21:14
Print Language: BURKINAN
[2024-06-07 18:38] LABS: % Basophils 0.5 % (0-2); % Eosinophils 0.6 % (0-6); % Immature Granulocytes 0.1 % (0-0.5); % Lymphocytes 29.2 % (20.5-51.1); % Monocytes 7.6 % (1.7-9.3); Absolute Eosinophils 0.1 10^3/uL (0-0.7); Absolute Lymphocytes 2.3 10^3/uL (1.2-3.4); Absolute Monocytes 0.6 10^3/uL (0.1-0.6); Absolute Neutrophils 4.9 10^3/uL (1.4-6.5); Hematocrit 35.2 % (37.0-47.0); Hemoglobin 12.1 g/dL (12.0-16.0); Mean Corp Hgb Conc. 34.4 g/dL (33.0-37.0); Mean Corpuscular Hgb 29.4 pg (27.0-31.0); Mean Corpuscular Volume 85.6 fL (81.0-99.0); Mean Platelet Volume 9.9 fL (7.4-10.4); Nucleated Red Blood Cells % 0 %; Platelet Count 266 10^3/uL (130-400); Red Blood Cell Count 4.11 10^6/uL (4.20-5.40); White Blood Cell Count 7.9 10^3/uL (4.8-10.8)
[2024-06-07 18:59] LABS: HCG, Serum Qualitative Screen Negative
[2024-06-07 19:04] LABS: ALT (SGPT) 11 U/L (0-35); AST (SGOT) 17 U/L (14-36); Albumin 4.1 g/dl (3.5-5.0); Alkaline Phosphatase 45 U/L (38-126); Blood Urea Nitrogen 21 mg/dl (7-17); Calcium 8.6 mg/dl (8.4-10.2); Carbon Dioxide 24 mmol/L (22-30); Chloride 103 mmol/L (98-107); Estimated Creatinine Clearance > 125 ml/min; Glucose 89 mg/dl (70-99); Sodium 138 mmol/L (135-145); Total Bilirubin 0.3 mg/dl (0.2-1.3); Total Protein 6.5 g/dl (6.3-8.2); eGFR > 60.00
[2024-06-07 21:10] LABS: Urine Albumin Negative (Neg - Trace); Urine Bilirubin Negative (Negative); Urine Character Clear (Clear); Urine Color Yellow; Urine Glucose Negative (Negative); Urine Ketone 1+ (Negative); Urine Leukocyte Negative (Negative); Urine Nitrite Negative (Negative); Urine Occult Blood Negative (Negative); Urine Urobilinogen Negative (Neg - 1+)
[2024-06-07 21:23] LABS: Amphetamines Negative (Negative); Barbiturates Negative (Negative); Benzodiazepines Negative (Negative); Buprenorphine Negative (Negative); Cocaine Negative (Negative); Marijuana Negative (Negative); Methadone Negative (Negative); Methamphetamines Negative (Negative); Opiates Negative (Negative); Phencyclidine Negative (Negative); Tricyclic Antidepressants Negative (Negative)
== END 2024-06-07 21:14 ==
LOC: EMR 17:42
PROVIDERS: Clinical Nurse Specialist Family Health; EMERGENCY PHYSICIAN Emergency Medicine; FAMILY PHYSICIAN Internal Medicine
DX: F32.A Depression, unspecified (principal); R45.851 Suicidal ideations; R10.30 Lower abdominal pain, unspecified; R19.7 Diarrhea, unspecified; F41.9 Anxiety disorder, unspecified; F42.9 Obsessive-compulsive disorder, unspecified
CPT/HCPCS: 99283; 80053; 80306; 81003; 84703; 85025